=== PATIENT | female | born 1950 | race Caucasian/White ===

== ENCOUNTER 2024-07-31 10:25 | Emergency (ER) | payer MEDICARE ==
[~2024-07-31] VITALS: Ht 160 cm; Wt 81.6 kg
[2024-07-31 11:06] VITALS: PULSE 87; RESP 18; TEMP 97.2; O2SAT 98
[2024-07-31] MEDS: KETOROLAC TROMETHAMINE 60 MG/2 ML VIAL IM ONE (11:28)
== END 2024-07-31 11:34 | disposition home or self-care (01) ==
LOC: ER 11:01
DX: M25.512 Pain in left shoulder (principal); G89.29 Other chronic pain; I10 Essential (primary) hypertension; E11.9 Type 2 diabetes mellitus without complications; J44.9 Chronic obstructive pulmonary disease, unspecified; I50.9 Heart failure, unspecified; E78.5 Hyperlipidemia, unspecified; M32.9 Systemic lupus erythematosus, unspecified; G35 Multiple sclerosis; M06.9 Rheumatoid arthritis, unspecified; M81.0 Age-related osteoporosis without current pathological fracture; I25.2 Old myocardial infarction; Z86.73 Personal history of transient ischemic attack (TIA), and cerebral infarction without residual deficits
CPT/HCPCS: 99283; J1885